=== PATIENT | male | born 2000 | race Caucasian/White ===

== ENCOUNTER 2021-11-18 02:28 | Emergency (ER) | payer OTHER ==
[~2021-11-18] VITALS: Ht 185.4 cm; Wt 90.7 kg
[2021-11-18 02:30] VITALS: BP 128/80
--- NOTE | 2021-11-18 02:31 | NUR ---
Patient waited in lobby.
--- NOTE | 2021-11-18 04:11 | NUR ---
PT LEFT PREMISE PER SECURITY
== END 2021-11-18 04:11 | disposition left against medical advice (07) ==
LOC: MED 02:28
DX: M25.561 Pain in right knee (principal); Z53.21 Procedure and treatment not carried out due to patient leaving prior to being seen by health care provider; V00.131A Fall from skateboard, initial encounter; Y93.89 Activity, other specified; Y92.410 Unspecified street and highway as the place of occurrence of the external cause; Y99.8 Other external cause status